=== PATIENT | female | born 1975 | race African-American/Black ===

== ENCOUNTER 2016-07-29 06:33 | Emergency (ER) | payer BC ==
[2016-07-29 06:57] VITALS: BP 123/74
[2016-07-29 07:17] LABS: Basophils % (Auto) 0.6 % (0.0-1.8); Eosinophils % (Auto) 4.5 % (0.0-4.3); Hematocrit 39.6 % (30.3-42.9); Hemoglobin 12.7 gm/dl (10.1-14.3); Mean Corpuscular HGB Conc 32 % (30-34); Mean Corpuscular Hemoglobin 26 pg (28-32); Mean Corpuscular Volume 81 fl (79-97); Platelet Count 225 K/mm3 (140-440); Red Blood Count 4.87 M/mm3 (3.65-5.03); Red Cell Distribution Width 14.6 % (13.2-15.2); White Blood Count 6.5 K/mm3 (4.5-11.0)
[2016-07-29 07:42] LABS: Anion Gap 17 mmol/L; BUN/Creatinine Ratio 18.57; Blood Urea Nitrogen 13 mg/dL (7-17); Calcium 8.7 mg/dL (8.4-10.2); Carbon Dioxide 22 mmol/L (22-30); Chloride 105.3 mmol/L (98-107); Glucose 97 mg/dL (65-100); Potassium 4.2 mmol/L (3.6-5.0); Sodium 140 mmol/L (137-145)
[2016-07-29 08:19] LABS: Bilirubin,Urine NEG (Negative); Blood,Urine NEG (Negative); Ketones,Urine NEG (Negative); Leukocyte Esterase,Urine MOD (Negative); Mucus,Urine 1+ /HPF; Nitrite,Urine NEG (Negative); Protein,Urine <15 mg/dL mg/dL (Negative); Urobilinogen,Urine < 2.0 mg/dL (<2.0)
--- NOTE | 2016-07-29 15:29 | Emergency Department Report ---
Chief Complaint: Dizziness Stated Complaint: DIZZY - HPI History of Present Illness: Patient here complaining of dizziness since waking up at 545 this morning. She said she had the feeling of almost fainted but didn't faint. Patient denies any medical problems and she says she is just taking vitamins. Denies any chest pain or shortness of breath. She says she was up until after they took her blood and she is not dizzy at present. Denies any fever but reported chills. Last menstrual period was 07/08/2016. Denies any headache or blurred vision. - ROS Review of Systems: All systems are negative unless stated in HPI above. - Exam Vital Signs: Vital Signs 07/29/16 06:54 Temperature 98.1 F Pulse Rate 82 Respiratory 18 Rate Blood Pressure 123/74 O2 Sat by Pulse 98 Oximetry Physical Exam: General: This is a 40-year-old female well-nourished well-developed in no acute distress. Mini-neurological exam: GCS 15, alert and oriented 3. Speech is clear and fluid. Gait is normal, no pronator drift and negative Romberg. CV: S1, S2. Reg. Rate and rhythm. MSE screening note: Focused history and physical exam performed. Due to findings the following was ordered:see the [facility] ED Medical Decision Making - Lab Data Result diagrams: 07/29/16 07:03 07/29/16 07:03 - Medical Decision Making Medical decision making: Patient seen by provider in triage area. Appropriate protocol activated and patient to main ED to be seen by physician. ED Disposition for MSE Condition: Stable
--- NOTE | 2016-07-30 11:59 | ED Elopement Review ---
ED Pt Elopement review - Results review Lab results: Laboratory Tests 07/29/16 07/29/16 07/29/16 07:03 07:03 07:03 WBC 6.5 RBC 4.87 Hgb 12.7 Hct 39.6 MCV 81 MCH 26 L MCHC 32 RDW 14.6 Plt Count 225 Lymph % (Auto) 34.2 [place] % (Auto) 6.9 Eos % (Auto) 4.5 H Baso % (Auto) 0.6 Lymph # 2.2 [place] # 0.4 Eos # 0.3 Baso # 0.0 Seg Neutrophils % 53.8 Seg Neutrophils # 3.5 Sodium 140 Potassium 4.2 Chloride 105.3 Carbon Dioxide 22 Anion Gap 17 BUN 13 Creatinine 0.7 Estimated GFR > 60 BUN/Creatinine Ratio 18.57 Glucose 97 Calcium 8.7 Troponin T < 0.010 HCG, Qual Negative Urine Color Urine Turbidity Urine pH Ur Specific [place] Urine Protein Urine Glucose (UA) Urine Ketones Urine Blood Urine Nitrite Urine Bilirubin Urine Urobilinogen Ur Leukocyte Esterase Urine WBC (Auto) Urine RBC (Auto) U Epithel Cells (Auto) Urine Mucus 07/29/16 07/29/16 07/29/16 07:21 09:37 13:12 WBC RBC Hgb Hct MCV MCH MCHC RDW Plt Count Lymph % (Auto) [place] % (Auto) Eos % (Auto) Baso % (Auto) Lymph # [place] # Eos # Baso # Seg Neutrophils % Seg Neutrophils # Sodium Potassium Chloride Carbon Dioxide Anion Gap BUN Creatinine Estimated GFR BUN/Creatinine Ratio Glucose Calcium Troponin T < 0.010 < 0.010 HCG, Qual Urine Color Yellow Urine Turbidity Clear Urine pH 5.0 Ur Specific [place] 1.025 Urine Protein <15 mg/dl Urine Glucose (UA) Neg Urine Ketones Neg Urine Blood Neg Urine Nitrite Neg Urine Bilirubin Neg Urine Urobilinogen < 2.0 Ur Leukocyte Esterase Mod Urine WBC (Auto) 3.0 Urine RBC (Auto) 3.0 U Epithel Cells (Auto) 12.0 Urine Mucus 1+ - Call Back decision Pt Call Back Decision: No action required
== END 2016-07-29 18:50 | disposition left against medical advice (07) ==
LOC: ED 06:33
DX: R42 Dizziness and giddiness (principal); Z53.21 Procedure and treatment not carried out due to patient leaving prior to being seen by health care provider
CPT/HCPCS: 36415; 80048; 81001; 84484; 84703; 85025; 93005; 93010